=== PATIENT | male | born 1950 | race Two or more races ===

== ENCOUNTER → 2018-04-16 | Outpatient (CLI) | payer MEDICARE ==
[~2018-04-16] MED LIST: REGADENOSON 0.4 MG/5 ML SYRINGE ONE
== END | disposition home or self-care (01) ==
LOC: CFH 10:24
PROVIDERS: ATTEND Internal Medicine Cardiovascular Disease
DX: R07.89 Other chest pain (principal); R06.02 Shortness of breath
CPT/HCPCS: 78452; 93017; 93306; A9502; J2785

== ENCOUNTER 2020-12-10 10:59 | Observation (INO) | payer MEDICARE ==
[~2020-12-10] VITALS: Ht 170.2 cm; Wt 94.3 kg
--- NOTE | 2020-12-10 11:22 | NUR ---
PT CAME IN CO CHEST PAIN THAT HE DESCRIBES A PRESSURE THAT STARTED DAYS AGO. "IM SUPPOSED TO GO TO MY DOCTOR EVERY 6 MONTHS TO GET MY HEART CHECKED ON". PT TAKES DAILY ASPIRIN. PT ALSO CO LEFT EYE REDNESS AND IRRITATION THAT STARTED THIS MORNING. PT CONNECTED TO ALL MONITORING EQUIPMENT. EKG COMPLETE. 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
[2020-12-10] MEDS ORDERED: ASPIRIN 81 MG TABLET CHEW ONE (11:52)
[2020-12-10] MEDS ORDERED: MORPHINE SULFATE 4 MG/ML, 1ML ONE (11:55)
[2020-12-10] MEDS ORDERED: ONDANSETRON 2MG/ML, 2ML ONE (11:55)
[2020-12-10] MEDS ORDERED: ASPIRIN 81 MG TABLET CHEW PO ONE (12:00)
--- NOTE | 2020-12-10 12:12 | NUR ---
PT REFUSED PAIN MEDICATION AT THIS TIME
[2020-12-10 12:19] LABS: BASOPHILS % (AUTO) 1 % (0-1); EOSINOPHILS % (AUTO) 0 % (1-7); LYMPHOCYTES % (AUTO) 22 % (22-44); MEAN CORPUSCULAR HEMOGLOBIN 29.9 pg (27.5-34.5); MEAN CORPUSCULAR HGB CONC 33.3 g/dL (33.2-36.2); MEAN PLATELET VOLUME 8.4 fL (7.4-10.4); MONOCYTES % (AUTO) 8 % (2-9); NEUTROPHILS % (AUTO) 68 % (42-75); PLATELET COUNT 212 x10^3/uL (130-400); RED BLOOD COUNT 5.02 x10^6/uL (4.38-5.82); RED CELL DISTRIBUTION WIDTH 14.3 % (9.4-14.8)
[2020-12-10 12:30] LABS: ALANINE AMINOTRANSFERASE 32 U/L (12-78); ALBUMIN 3.7 g/dL (3.4-5.0); ANION GAP 6 mmol/L (5-15); CALCIUM 8.6 mg/dL (8.5-10.1); CHLORIDE 110 mmol/L (98-107); MD NO
[2020-12-10] MEDS ORDERED: MORPHINE SULFATE 4 MG/ML, 1ML IVPush PRN (12:30)
[2020-12-10] MEDS ORDERED: ONDANSETRON 2MG/ML, 2ML IVPush ONE (12:30)
[2020-12-10 12:35] LABS: ALKALINE PHOSPHATASE 57 U/L (45-117); BILIRUBIN,TOTAL 0.4 mg/dL (0.2-1.0); TOTAL PROTEIN 7.5 g/dL (6.4-8.2); TROPONIN I < 0.015 ng/mL (0.000-0.045)
[2020-12-10] MEDS ORDERED: ASPI-963 PO (13:20)
[2020-12-10] MEDS ORDERED: INSU100V8 SQ (13:20)
[2020-12-10] MEDS ORDERED: OLME20TA17 PO (13:22)
[2020-12-10] MEDS ORDERED: AMLO-211 PO (13:22)
[2020-12-10] MEDS ORDERED: ROSU20TA2 PO (13:22)
[2020-12-10 13:36] VITALS: BP 146/86
[2020-12-10] MEDS ORDERED: ASPIRIN 325 MG TABLET EC PO ONE (15:00)
[2020-12-10] MEDS ORDERED: morphine SULFATE 10 MG/ML, 1ML IV PRN (15:00)
[2020-12-10] MEDS ORDERED: NITROGLYCERIN 0.4 MG BOTTLE (25 TABS) SL PRN (15:00)
[2020-12-10] MEDS ORDERED: NITROGLYCERIN 0.4 MG/SPRAY SL PRN (15:00)
[2020-12-10 15:07] LABS: CHOL/HDL RATIO 2.3; CHOLESTEROL, TOTAL 105 mg/dL (140-239); HDL CHOL % 44 % (26-37); HDL CHOLESTEROL (DIRECT) 46 mg/dL (40-60); LDL CHOLESTEROL,CALCULATED 43 mg/dL (54-169); LDL/HDL RATIO 0.9 (0.5-3.0); TRIGLYCERIDES 81 mg/dL (50-200); TROPONIN I < 0.015 ng/mL (0.000-0.045); VLDL CHOLESTEROL 16 mg/dL (0-25)
[2020-12-10] MEDS ORDERED: GLUCAGON 1 MG IM PRN (15:30)
[2020-12-10] MEDS ORDERED: DEXTROSE 4 GM TAB.CHEW PO PRN (15:30)
[2020-12-10] MEDS ORDERED: DEXTROSE 50%, 50ML SYRINGE IVPush PRN (15:30)
[2020-12-10] MEDS: INSULIN LISPRO 100 UNITS/ML, PEN SQ-INSULIN SCH ×2 (16:00→21:00)
[2020-12-10] MEDS: HEPARIN 5,000 UNITS/ML, 1ML SQ SCH (16:01)
[2020-12-10] MEDS: ACETAMINOPHEN 325 MG TABLET PO PRN (16:09)
[2020-12-10 18:05] LABS: TROPONIN I < 0.015 ng/mL (0.000-0.045)
[2020-12-10 18:17] VITALS: BP 121/71
[2020-12-10] MEDS: FAMOTIDINE 20 MG TABLET PO SCH (22:10)
[2020-12-10] MEDS: SODIUM CHLORIDE FLUSH 10ML SYR IVF SCH ×2 (22:10)
[2020-12-11 00:08] VITALS: BP 132/77
[2020-12-11] MEDS: HEPARIN 5,000 UNITS/ML, 1ML SQ SCH ×3 (00:52→15:57)
[2020-12-11] MEDS ORDERED: ASPIRIN 325 MG TABLET EC PO SCH (06:00)
[2020-12-11] MEDS: INSULIN LISPRO 100 UNITS/ML, PEN SQ-INSULIN SCH ×3 (07:00→16:00)
[2020-12-11 07:18] VITALS: BP 157/85
[2020-12-11] MEDS: FAMOTIDINE 20 MG TABLET PO SCH (08:03)
[2020-12-11] MEDS: SODIUM CHLORIDE FLUSH 10ML SYR IVF SCH ×2 (08:04)
[2020-12-11] MEDS: ACETAMINOPHEN 325 MG TABLET PO PRN ×2 (08:04→15:57)
[2020-12-11] MEDS ORDERED: AMLODIPINE 5 MG TABLET PO SCH (09:00)
[2020-12-11 12:51] VITALS: BP 143/78
[2020-12-11] MEDS ORDERED: FAMO20TA7 PO (16:27)
== END 2020-12-11 17:30 | disposition home or self-care (01) ==
LOC: ED 12:20 → EDIP 12:40 → INTOOBSV 12:40 → SUATTDRO 12:50 → 5SO 13:47
PROVIDERS: ADMIT Family Medicine; ATTEND Family Medicine
DX: R07.89 Other chest pain (principal); K21.9 Gastro-esophageal reflux disease without esophagitis; I10 Essential (primary) hypertension; E11.9 Type 2 diabetes mellitus without complications; I51.89 Other ill-defined heart diseases; Z79.82 Long term (current) use of aspirin; Z79.4 Long term (current) use of insulin; Z79.899 Other long term (current) drug therapy; Z87.891 Personal history of nicotine dependence
CPT/HCPCS: 36415; 71045; 80053; 80061; 82962; 84484; 85025; 93005; 93017; 93306; 93356; 96372; 99285; G0378; J1644; J1815